=== PATIENT | male | born 1975 | race Caucasian/White ===

== ENCOUNTER 2020-09-28 19:04 | Emergency (ER) | payer OTHER ==
[~2020-09-28] VITALS: Ht 182.9 cm; Wt 110.0 kg
[~2020-09-28 19:04] MED LIST: ISENTRESS400 MG PO; TRUVADA 200 MG1 EACH PO; ZOFRAN ODT4 MG PO
== END 2020-09-28 21:00 | disposition home or self-care (01) ==
LOC: ED 19:04
DX: S63.501A Unspecified sprain of right wrist, initial encounter (principal); Y04.8XXA Assault by other bodily force, initial encounter; Z88.1 Allergy status to other antibiotic agents
CPT/HCPCS: 73130; 99283-25

== ENCOUNTER 2025-01-11 10:43 | Emergency (ER) | payer OTHER ==
[~2025-01-11] VITALS: Ht 182.9 cm; Wt 109.0 kg
[2025-01-11] MEDS ORDERED: predniSONE 20 MG TAB PO ONE (11:30)
[2025-01-11] MEDS ORDERED: ALBUTEROL/IPRATROPIUM 3 ML NEB INH ONE (11:30)
[2025-01-11] MEDS ORDERED: PREDNISONE20 MG PO (12:21)
[2025-01-11] MEDS ORDERED: HYDROCODON-ACE1 EA11 PO (12:21)
[2025-01-11] MEDS ORDERED: VENTOLIN HFA18 GM INH (12:21)
[2025-01-11] MEDS ORDERED: IPRAT-ALBUT 0.5-3 ML INH (12:22)
[2025-01-11 12:35] VITALS: BP 125/98
== END 2025-01-11 12:36 | disposition home or self-care (01) ==
LOC: ED 10:43
DX: J40 Bronchitis, not specified as acute or chronic (principal); J98.01 Acute bronchospasm; Z88.8 Allergy status to other drugs, medicaments and biological substances
CPT/HCPCS: 94640; 99283; J7512